=== PATIENT | male | born 2000 | race Caucasian/White ===

== ENCOUNTER 2020-08-02 10:44 | Emergency (ER) | payer OTHER, SELFPAY ==
[2020-08-02 11:01] VITALS: BP 145/92; PULSE 102; RESP 20; TEMP 37.6; O2SAT 97
--- NOTE | 2020-08-02 11:10 | ED.URI ---
HPI - URI/Sore Throat General Chief Complaint: Upper Respiratory Infection Stated Complaint: sore throat Source: patient Mode of arrival: ambulatory Limitations: no limitations History of Present Illness HPI Narrative: 20 year old male presents to [facility] with complaints of sore throat, scratchy throat, fever, body aches and chills since yesterday. Patient not tried taking any [id number] medications for her symptoms. Patient denies sick contacts. Patient denies recent travel. Patient denies productive cough, shortness of breath, wheezing, nausea, vomiting or diarrhea. MD elicited complaint: fever, cough and sore throat Onset (ago): day(s) (1) Consistency: constant Severity: mild Able to tolerate fluids by mouth: Yes Exacerbating factors: nothing Relieving factors: nothing Treatments prior to arrival: none Related Data Home Medications Medication Instructions Recorded Confirmed lurasidone [Latuda] 60 mg DAILY 11/11/19 08/02/20 sertraline 50 mg DAILY 11/11/19 08/02/20 sertraline 100 mg DAILY 11/11/19 08/02/20 Allergies Allergy/AdvReac Type Severity Reaction Status Date / Time cat dander Allergy Unknown Sneezing Verified 08/02/20 11:04 Review of Systems Review of Systems: All systems reviewed & are unremarkable except as noted in HPI and below Constitutional: Constitutional: Reports chills, Denies fatigue, Reports fever(s) and Denies weakness ENT: Denies dysphagia, Denies vertigo, Denies dizziness, Denies epistaxis, Denies nasal congestion and Reports sore throat Cardiovascular: Cardiovascular: Denies chest pain, Denies rapid heart rate, Denies radiating jaw, neck or arm pain and Denies slow heart rate Respiratory: Respiratory: Denies chest congestion, Reports cough (mild dry cough), Denies dyspnea and Denies wheezing Gastrointestinal: Gastrointestinal: Denies abdominal pain, Denies diarrhea, Denies nausea and Denies vomiting Integumentary/Breasts: Skin/Breast: Denies rash Neurologic: Denies vertigo, Denies headache(s), Denies focal weakness and Denies numbness PMF Past Medical History Medical History (Updated 08/02/20 @ 11:27 by Mercedez James APRN) Depression Family History Family History Father Family history of bipolar disorder Social History Social History Smoking status: Never smoker Alcohol intake: never Substance use type: marijuana Gender identity (if verbalized by the patient): Male Exam Const: General: healthy appearing, no acute distress and alert Orientation/consciousness: patient oriented x3 HENMT: Ears: TM's normal bilaterally General nose exam: Normal external nose present and Normal nares present Mouth: Yes Normal oral and palatal mucosa present, Yes lip normal and Yes moist mucous membranes Teeth and gingiva: dentition normal Throat: uvula midline Other: 2+ swelling, erythema and exudate noted to bilateral tonsils. Uvula midline, no shift noted. there is no peritonsillar abscess noted. Neck: Neck: normal visual inspection and no lymphadenopathy Resp: Effort & Inspection: normal respiratory effort Auscultation: clear to auscultation bilaterally Cardio: Rate: regular rate, not bradycardic and not tachycardic Rhythm: regular rhythm Skin: General skin exam: normal color, no jaundice and no pallor Rashes: no rashes Wounds: no wounds Neuro: General: patient oriented x3, moves all extremities and no meningeal signs Psych: Appearance: grossly normal Mental Status: mental status grossly normal Affect: normal affect Attitude: cooperative Thought content: Yes Normal thought content present Course Vital Signs Vital signs: Vital Signs Temperature 37.6 C H 08/02/20 11:01 Pulse Rate 102 H 08/02/20 11:01 Respiratory Rate 20 08/02/20 11:01 Blood Pressure 145/92 H 08/02/20 11:01 Pulse Oximetry 97 08/02/20 11:01 Temperature 37.6
[2020-08-02] MEDS: IBUPROFEN 600 MG TABLET PO (11:24)
== END 2020-08-02 11:53 | disposition home or self-care (01) ==
PROVIDERS: Emergency Provider Nurse Practitioner Family; PCP Family Medicine
DX: J03.90 Acute tonsillitis, unspecified (principal); F32.9 Major depressive disorder, single episode, unspecified
CPT/HCPCS: 87081; 87880; 99213; A9270; G0463

== ENCOUNTER 2021-06-05 18:02 | Emergency (ER) | payer OTHER, SELFPAY ==
[2021-06-05 18:16] VITALS: BP 126/81; PULSE 85; RESP 18; TEMP 36.8; O2SAT 97
--- NOTE | 2021-06-05 18:38 | ED.GENADULT ---
HPI - General Adult General Chief complaint: Recheck/Abnormal Lab/Rx Stated complaint: Medication Refill Time Seen by Provider: 06/05/21 18:30 Source: patient, family and RN notes reviewed Mode of arrival: ambulatory Limitations: no limitations History of Present Illness HPI narrative: Patient presents today requesting a refill of his carbamazepine. Patient takes 200 mg twice daily per the pharmacy database. His last refill was at the beginning of April and he has been out for about a week. He has an appointment with a new psychiatrist on June 11 and needs a short-term refill until that time. He denies HI, SI, hallucinations. History of borderline personality disorder, bipolar disorder. Denies any additional concerns or needs. MD complaint: Medication refill Related Data Home Medications Medication Instructions Recorded Confirmed carbamazepine 100 mg 100 mg PO Q12H 03/08/21 05/22/21 tablet,extended release,12 hr naltrexone mg 06/05/21 Allergies Allergy/AdvReac Type Severity Reaction Status Date / Time cat dander Allergy Unknown Sneezing Verified 05/22/21 13:20 Review of Systems Review of Systems: CONSTITUTIONAL: Denies body aches, fever, chills, or sweats. EYES: Denies visual changes, redness, or discharge. ENT: Denies rhinorrhea, congestion, sore throat, or otalgia. CARDIOVASCULAR: Denies chest pain, palpitations, or edema. RESPIRATORY: Denies cough or dyspnea. GASTROINTESTINAL: Denies abdominal pain, nausea, vomiting, or diarrhea. GENITOURINARY: Denies dysuria or hematuria. SKIN: Denies rash, itching, or wounds. MUSCULOSKELETAL: Denies back pain, joint pain, or myalgia. NEUROLOGIC: Denies headache, numbness, tingling, or weakness. PSYCH: Denies depression or anxiety. [facility] Past Medical History Medical History Depression Family History Family History Father Family history of bipolar disorder Social History Social History Smoking status: Never smoker Tobacco type: e-cigarettes/vaping Second hand tobacco smoke exposure: No Alcohol intake: never Substance use: current Substance use type: marijuana Gender identity (if verbalized by the patient): Male Exam Narrative: GENERAL: Well-appearing, well-nourished, and in no acute distress. HEAD: Normocephalic, atraumatic. EYES: EOMI. No redness or drainage. Conjunctivae normal. ENT: Mucous membranes pink and moist. NECK: Normal AROM.. CHEST: No respiratory distress. EXTREMITIES: Normal range of motion. No edema. SKIN: Warm, dry, no rash. Capillary refill normal. Normal skin turgor. NEURO: No focal deficits. Alert and oriented x3. Gait steady. PSYCH: Normal affect. Course Vital Signs Vital signs: Vital Signs Temperature 98.2 F 06/05/21 18:16 Pulse Rate 85 06/05/21 18:16 Respiratory Rate 18 06/05/21 18:16 Blood Pressure 126/81 06/05/21 18:16 Pulse Oximetry 97 06/05/21 18:16 Temperature 98.2 F 06/05/21 18:16 Pulse Rate 85 06/05/21 18:16 Respiratory Rate 18 06/05/21 18:16 Blood Pressure 126/81 06/05/21 18:16 Pulse Oximetry 97 06/05/21 18:16 Reviewed. Pt has been instructed to follow up with his PCP regarding his elevated blood pressure today. Medical Decision Making Differential Diagnosis Differential Diagnosis: Medication refill Vital Signs Vital Signs: Vital Signs Temperature 98.2 F 06/05/21 18:16 Pulse Rate 85 06/05/21 18:16 Respiratory Rate 18 06/05/21 18:16 Blood Pressure 126/81 06/05/21 18:16 Pulse Oximetry 97 06/05/21 18:16 Temperature 98.2 F 06/05/21 18:16 Pulse Rate 85 06/05/21 18:16 Respiratory Rate 18 06/05/21 18:16 Blood Pressure 126/81 06/05/21 18:16 Pulse Oximetry 97 06/05/21 18:16 Critical Care Time Critical Care Time Critical Care Time: No Di
== END 2021-06-05 18:52 | disposition home or self-care (01) ==
PROVIDERS: Emergency Provider Nurse Practitioner; PCP Physician Assistant
DX: Z76.0 Encounter for issue of repeat prescription (principal); F17.200 Nicotine dependence, unspecified, uncomplicated; F31.9 Bipolar disorder, unspecified
CPT/HCPCS: 99211; G0463

== ENCOUNTER 2021-06-08 15:05 | Emergency (ER) | payer OTHER, SELFPAY ==
[2021-06-08 15:12] VITALS: BP 127/73; PULSE 86; RESP 20; TEMP 36.3; O2SAT 97
--- NOTE | 2021-06-08 15:27 | ED.GENADULT ---
HPI - General Adult General Chief complaint: Upper Respiratory Infection Stated complaint: Chest pain,shortness of breathe Source: patient Mode of arrival: ambulatory Limitations: no limitations History of Present Illness HPI narrative: 20 y/o male. PMHx: Asthma, Bipolar I. Presents to [facility] today with acute complaints of cough, chest congestion, and chest pain when he talks a lot or coughs . He reports a loud dry cough , non-productive. Pt is a daily Vape smoker. No fever, chills. No dizziness, palpitations, dyspnea, edema. No wheezing. He has been taking home Pro-Air HFA with some relief. He tells me that he is worried he may need something else for his cough because the last time this happened he got really sick with a lung infection . He is without additional acute complaints of illness upon exam. Related Data Home Medications Medication Instructions Recorded Confirmed fluticasone furoate-vilanterol 1 inh INHALATION DAILY 06/08/21 06/08/21 [Breo Ellipta] naltrexone 50 mg PO DAILY 06/08/21 06/08/21 Allergies Allergy/AdvReac Type Severity Reaction Status Date / Time cat dander Allergy Unknown Sneezing Verified 06/08/21 15:32 Review of Systems Review of Systems: CONSTITUTIONAL: Denies fever, chills, sweats. EYES: Denies visual changes, redness, discharge. ENT: Positive congestion. No sore throat, otalgia. CARDIOVASCULAR: Chest wall pain. Denies palpitations, edema. RESPIRATORY: Cough. No dyspnea, wheezing. GASTROINTESTINAL: Denies abdominal pain, nausea, vomiting, diarrhea. GENITOURINARY: Denies dysuria, hematuria, abnormal discharge SKIN: Denies rash or itching. MUSCULOSKELETAL: Denies acute back pain, joint pain, or myalgia. NEUROLOGIC: Denies numbness, or focal weakness. PSYCHIATRIC: Denies anxiety or depression. All systems reviewed & are unremarkable except as noted in HPI and below PMFSH Past Medical History Medical History Depression Family History Family History Father Family history of bipolar disorder Social History Social History Smoking status: Never smoker Tobacco type: e-cigarettes/vaping Second hand tobacco smoke exposure: No Alcohol intake: never Substance use: current Substance use type: marijuana Gender identity (if verbalized by the patient): Male Exam Narrative: GENERAL: This is a well-nourished, well-developed patient, in no apparent distress. HEAD: normocephalic, atraumatic. EYES: PERRL. Sclera clear/white. Vision is grossly intact. EARS: External ears normal, auditory canals clear and without drainage. NOSE: External nose normal. THROAT: Mucous membranes moist, posterior pharynx erythematous, w/o exudate. NECK: Neck supple, non-tender without lymphadenopathy, masses or thyromegaly. CARDIOVASCULAR: Regular rate and rhythm without murmurs, gallops, or rubs. There is reproducible chest wall pain with direct manipulation over mid-sternum. No crepitus. Chest wall rises symetrically. RESPIRATORY: Clear to auscultation. Breath sounds equal bilaterally. No wheezes or rales. Upper airway Rhonchi, cleared with cough. GASTROINTESTINAL: Abdomen soft, non-tender, nondistended. Bowel sounds are active. No hepato-splenomegaly, or palpable masses. No guarding. SKIN: warm, intact, good texture and turgor. NEURO: No focal neurological deficits. Course Vital Signs Vital signs: Vital Signs Temperature 36.3 C L 06/08/21 15:12 Pulse Rate 86 06/08/21 15:12 Respiratory Rate 20 06/08/21 15:12 Blood Pressure 127/73 06/08/21 15:12 Pulse Oximetry 97 06/08/21 15:12 Temperature 36.3 C L 06/08/21 15:12 Pulse Rate 86 06/08/21 15:12 Respiratory Rate 20 06/08/21 15:12 Blood Pressure 127/73 06/08/21 15:12 Pulse Oximetry 97 06/08/21 15:12 Medical Decision Aliya
== END 2021-06-08 15:37 | disposition home or self-care (01) ==
PROVIDERS: Emergency Provider Nurse Practitioner Adult Health; PCP Physician Assistant
DX: J06.9 Acute upper respiratory infection, unspecified (principal); J45.909 Unspecified asthma, uncomplicated
CPT/HCPCS: 99213; G0463

== ENCOUNTER → 2021-06-15 00:46 | Outpatient (CLI) | payer OTHER, SELFPAY ==
[2021-06-15 21:49] LABS: SARS-CoV-2 RNA PCR Negative
== END ==
PROVIDERS: PCP Family Medicine; Visit Provider Nurse Practitioner Family
DX: R68.89 Other general symptoms and signs (principal); Z20.822 Contact with and (suspected) exposure to COVID-19
CPT/HCPCS: C9803; U0003; U0005

== ENCOUNTER 2022-02-17 16:20 | Outpatient (CLI) | payer OTHER, SELFPAY ==
--- NOTE | ~2022-02-17 | XR_ITS ---
EXAMINATION: XR chest 2V DATE: 02/17/2022 16:53 INDICATION: Unspecified asthma, uncomplicated. TECHNIQUE: Frontal and lateral views of the chest were obtained. COMPARISON: Chest 2 views 08/01/2017 FINDINGS: The chest demonstrates clear lungs without pneumonia, pleural effusion, or pneumothorax. Th e heart size is normal. IMPRESSION: 1. No acute cardiopulmonary disease. Reviewed, dictated and finalized at location A.
== END 2022-02-17 16:21 ==
PROVIDERS: PCP Family Medicine; Visit Provider Physician Assistant
DX: J45.909 Unspecified asthma, uncomplicated (principal)
CPT/HCPCS: 71046

== ENCOUNTER 2022-09-13 14:56 | Emergency (ER) | payer OTHER, SELFPAY ==
--- NOTE | ~2022-09-13 | US_ITS ---
EXAMINATION: US scrotum doppler DATE: 09/13/2022 16:34 INDICATION: GENITAL SWELLING, left scrotal pain. TECHNIQUE: Grayscale and Doppler ultrasound images of the testes were obtained. COMPARISON: None. FINDINGS: The right testis measures 3.5 x 2.6 x 1.8 cm. The left testis measures 3.2 x 2.9 x 1.6 cm. No testicular mass. There is normal vascular flow to both testes. The right epididymis is normal with normal vascular flow. The left epididymis is normal with normal vascular flow. Moderate volume left debris-containing hydrocele. Small right hydrocele. No varicocele. IMPRESSION: Moderate volume debris-containing left hydrocele. Reviewed, dictated and finalized at location K.
--- NOTE | ~2022-09-13 | CT_ITS ---
EXAMINATION: CT abdomen pelvis wo con DATE: 09/13/2022 18:29 INDICATION: L lower abd pain and testicular pain TECHNIQUE: Computed tomography (CT) of the abdomen and pelvis was performed without intravenous contr ast. Automated exposure control and iterative reconstruction technique were employed. The dose-length product was 929.05 mGy-cm. COMPARISON: None. FINDINGS: Lower thorax: Minimal bilateral gynecomastia. Liver: Normal. Biliary/Gallbladder: Gallbladder is normal. No bile duct dilation. Pancreas: No mass or duct dilation. Spleen: Normal. Adrenals:No mass. Kidneys: No mass, stone, or hydronephrosis. GI tract: No small or large bowel dilation. Normal appendix. Mesentery/Peritoneum: No ascites, mass, or free air. Retroperitoneum: No mass. Pelvis: Pelvic organs are within normal limits. Soft Tissues: Soft tissues and body wall unremarkable. Bones: No acute osseous finding. IMPRESSION: No acute abdominopelvic process detected. Reviewed, dictated and finalized at location K.
[2022-09-13 14:59] VITALS: BP 136/89; PULSE 79; RESP 16; TEMP 36.9; O2SAT 97
[2022-09-13 15:19] LABS: Appearance Urine Clear (Clear); Bilirubin Urine Negative (Negative); Blood Urine Negative (Negative); Color Urine Yellow (Yellow); Glucose Urine UA Negative (Negative); Ketones Urine Negative (Negative); Leukocyte Esterase Ur Negative LEU/UL (Negative); Nitrate Urine Negative (Negative); Protein Urine Negative (Negative); Urobilinogen Urine 0.2 mg/dL (<2.0); pH Urine 5.5 (5.0-9.0)
[2022-09-13 15:27] LABS: Mucus Urine Rare /lpf; RBC Urine 0-2 /hpf (0-2); Squamous Epithelial Cell Urine Rare /hpf (Few); WBC Urine 0-3 /hpf
[2022-09-13 15:29] LABS: Add Urine Microscopic? NO
[2022-09-13] MEDS: IBUPROFEN 600 MG TABLET PO (16:51)
--- NOTE | 2022-09-13 18:37 | ED.GENADULT ---
HPI - General Adult General Chief complaint: Urogenital-Male Stated complaint: swelling in private areas Time Seen by Provider: 09/13/22 15:36 Source: RN notes reviewed History of Present Illness HPI narrative: Patient presents emergency department from home for left testicular pain. Patient states that testicular pain began approximately 2 days ago. States that he has had intermittent pain in his left testicle that radiates up into his abdomen states the pain is described as cramping in nature and almost feels like he has gas in his abdomen. He states that he has noted some swelling in his left testicle that will come and go states he was recently diagnosed with COVID on 10 September he denies any trauma or injury to the testicle he denies any fevers or chills nausea vomiting diarrhea or any other symptoms. States he has been taking pain medicine today Related Data Home Medications Medication Instructions Recorded Confirmed naltrexone 50 mg tablet 50 mg PO DAILY 06/08/21 04/18/22 Allergies Allergy/AdvReac Type Severity Reaction Status Date / Time cat dander Allergy Unknown Sneezing Verified 07/30/22 15:42 Review of Systems Review of Systems: Gen.: Denies fevers or chills, reports COVID-19 ENT: Denies congestion Respiratory: Denies shortness of breath or cough CV: Denies chest pain or palpitations GI: Reports intermittent left lower abdominal pain, denies any nausea vomiting or diarrhea denies burning, urgency, frequency or hematuria reports left testicular pain Musculoskeletal: Denies back pain or muscle pain Neuro: Denies numbness, tingling, weakness or focal weakness Skin: Denies rash Except as documented, all other systems reviewed and negative [facility] Past Medical History Medical History (Updated 09/13/22 @ 19:02 by Darrius Figueredo DO) COVID-19 Depression Family History Family History Father Family history of bipolar disorder Social History Social History Social History: Single Smoking status: Never smoker Tobacco type: e-cigarettes/vaping Second hand tobacco smoke exposure: No Alcohol intake: never Substance use: current Substance use type: marijuana Gender identity (if verbalized by the patient): Male Sexual Orientation (if Verbalized by the Patient): Straight or Heterosexual Exam Narrative: APPEARANCE: No acute distress, nontoxic, resting in bed EYES: EOMI HEENT: Normocephalic, atraumatic, OMM RESPIRATORY: No respiratory distress Clear to auscultation bilaterally with no rhonchi wheezing or rales. CARDIOVASCULAR: Regular rate and rhythm without murmurs rubs or gallops. ABDOMINAL: Soft, nontender, nondistended, no rebound or guarding : No skin lesions seen no phimosis or paraphimosis, no scrotal swelling or erythema mild tenderness of the left posterior superior testicle no testicular swelling noted MUSCULOSKELETAl: Moves all extremities. No clubbing, cyanosis or edema. NEURO: Awake and alert. Following commands, speech normal, no focal deficits SKIN:: Warm, dry. No rashes lesions or abrasions PSYCHIATRIC: Normal affect/mood, Course Course Emergency Course: Discussed with patient results of workup and diagnosis. Discussed need for follow-up with primary care, proper use of medication, and reasons to return to the emergency department. Patient understands and agrees to current treatment plan Vital Signs Vital signs: Vital Signs Temperature 98.4 F 09/13/22 14:59 Pulse Rate 79 09/13/22 14:59 Respiratory Rate 16 09/13/22 14:59 Blood Pressure 136/89 09/13/22 14:59 Pulse Oximetry 97 09/13/22 14:59 Oxygen Delivery Room Air 09/13/22 14:59 Temperature 98.4 F 09/13/22 14:59 Pulse Rate 79 09/13/22 14:59 Respiratory Rate 16 09/13/22 14:59 Blood Pressure 136/89 09/13/22 14:59 Pulse Oximetry 97 09/13/22 14:59 Oxygen Delivery Faby
== END 2022-09-13 19:20 | disposition home or self-care (01) ==
PROVIDERS: Emergency Provider Emergency Medicine; PCP Family Medicine
DX: N43.3 Hydrocele, unspecified (principal); U07.1 COVID-19
CPT/HCPCS: 74176; 76870; 81003; 93976; 99284; A9270

== ENCOUNTER 2022-12-11 08:15 | Emergency (ER) | payer OTHER, SELFPAY ==
--- NOTE | ~2022-12-11 | XR_ITS ---
EXAMINATION: XR chest 2V DATE: 12/11/2022 08:58 INDICATION: Shortness of breath TECHNIQUE: PA and lateral views of the chest are obtained. COMPARISON: 02/17/2022 FINDINGS: The lungs are free of acute opacities. No pleural effusion or pneumothorax. The cardiomedia stinal silhouette is normal. The visualized bones and soft tissues are unremarkable. IMPRESSION: 1. No acute cardiopulmonary abnormality. Reviewed, dictated and finalized at location L. DESIGNER
[2022-12-11 08:25] VITALS: BP 135/64; PULSE 94; RESP 20; O2SAT 93
[2022-12-11 08:30] VITALS: PULSE 85; RESP 24
[2022-12-11] MEDS: IPRATROPIUM BR 0.02% INH SOLN 0.5 MG/2.5 ML VIAL INHALATION (08:33)
[2022-12-11] MEDS: ALBUTEROL SULFATE NEB 2.5 MG/3 ML INH 5 MG INHALATION (08:34)
[2022-12-11 08:50] VITALS: PULSE 90; RESP 20
[2022-12-11 09:22] LABS: Influenza A QL RT-PCR Negative (Negative); Influenza B QL RT-PCR Negative (Negative); SARS-CoV-2 RNA PCR Negative
--- NOTE | 2022-12-11 10:46 | ED.GENADULT ---
HPI - General Adult General Chief complaint: Upper Respiratory Infection Stated complaint: Asthma, URI, Time Seen by Provider: 12/11/22 08:21 History of Present Illness HPI narrative: Patient is a 22-year-old male who presents ER with shortness of breath and cough. Ongoing for a week. No improvement with his albuterol. Denies fevers or chills or sweats but has some sinus congestion and sore throat. No known sick contacts. Shortness of breath worse today so he came in for evaluation. Related Data Home Medications Medication Instructions Recorded Confirmed naltrexone 50 mg tablet 50 mg PO DAILY 06/08/21 11/26/22 Allergies Allergy/AdvReac Type Severity Reaction Status Date / Time cat dander Allergy Unknown Sneezing Verified 11/26/22 15:40 Review of Systems Review of Systems: All systems reviewed & are unremarkable except as noted in HPI and below Constitutional: Constitutional: Denies chills, Denies fatigue and Denies fever(s) ENT: Reports nasal congestion and Reports sore throat Cardiovascular: Cardiovascular: Denies chest pain, Denies rapid heart rate and Denies radiating jaw, neck or arm pain Respiratory: Respiratory: Reports cough, Reports dyspnea and Reports wheezing PMFSH Past Medical History Medical History (Updated 12/11/22 @ 19:13 by Mickey Harkins MD) ADHD Asthma Bipolar 1 disorder Borderline personality disorder COVID-19 Depression Surgical History Surgical History (Updated 12/11/22 @ 19:13 by Mickey Harkins MD) No pertinent past surgical history Family History Family History Father Family history of bipolar disorder Social History Social History Social History: Single Smoking status: Never smoker Tobacco type: e-cigarettes/vaping Second hand tobacco smoke exposure: No Alcohol intake: never Substance use: current Substance use type: marijuana Living arrangements: with friend(s) Occupation/Education: occupation Gender identity (if verbalized by the patient): Male Sexual Orientation (if Verbalized by the Patient): Straight or Heterosexual Exam Narrative: GENERAL: Well-appearing, well-nourished, and in no acute distress. HEAD: Normocephalic, atraumatic. ENT: Mucous membranes moist. CHEST: Faint diffuse expiratory wheezing. No respiratory distress. HEART: Regular rate and rhythm. Normal peripheral pulses. EXTREMITIES: Normal range of motion. No edema. SKIN: Warm, dry, no rash. NEURO: Alert and oriented x3. PSYCH: Normal mood and affect. Course Course Emergency Course: Lung sounds normal after neb treatment. Informed of COVID/flu/chest x-ray results. Discharge home with steroids. Vital Signs Vital signs: Vital Signs Pulse Rate 94 12/11/22 08:25 Respiratory Rate 20 12/11/22 08:25 Blood Pressure 135/64 12/11/22 08:25 Pulse Oximetry 93 12/11/22 08:25 Oxygen Delivery Room Air 12/11/22 08:25 Pulse Rate 86 12/11/22 11:25 Respiratory Rate 16 12/11/22 11:25 Blood Pressure 119/59 L 12/11/22 11:25 Pulse Oximetry 96 12/11/22 11:25 Oxygen Delivery Room Air 12/11/22 08:25 Medical Decision Making Vital Signs Vital Signs: Vital Signs Pulse Rate 94 12/11/22 08:25 Respiratory Rate 20 12/11/22 08:25 Blood Pressure 135/64 12/11/22 08:25 Pulse Oximetry 93 12/11/22 08:25 Oxygen Delivery Room Air 12/11/22 08:25 Pulse Rate 86 12/11/22 11:25 Respiratory Rate 16 12/11/22 11:25 Blood Pressure 119/59 L 12/11/22 11:25 Pulse Oximetry 96 12/11/22 11:25 Oxygen Delivery Room Air 12/11/22 08:25 Lab Data Labs: Lab Results 12/11/22 Range/Units 08:42 Influenza A (RT-PCR) Negative (Negative) Influenza B (RT-PCR) Negative (Negative) SARS-CoV-2 RNA (RT-PCR) Negative Imaging Data Radiologist's impression: ITS Impressions Chest X-Ray
[2022-12-11 11:25] VITALS: BP 119/59; PULSE 86; RESP 16; O2SAT 96
== END 2022-12-11 11:25 | disposition home or self-care (01) ==
PROVIDERS: Emergency Provider Emergency Medicine; PCP Family Medicine
DX: B34.9 Viral infection, unspecified (principal); J45.901 Unspecified asthma with (acute) exacerbation; Z20.822 Contact with and (suspected) exposure to COVID-19; F90.9 Attention-deficit hyperactivity disorder, unspecified type; F31.9 Bipolar disorder, unspecified; F60.3 Borderline personality disorder; Z86.16 Personal history of COVID-19
CPT/HCPCS: 71046; 87636; 94640; 99283

== ENCOUNTER 2023-02-06 13:56 | Outpatient (CLI) | payer OTHER, SELFPAY ==
--- NOTE | ~2023-02-06 | CT_ITS ---
EXAMINATION: CT diagnostic chest wo con DATE: 02/06/2023 14:27 INDICATION: Asthma and shortness of breath TECHNIQUE: Computed tomography (CT) of the chest was performed without intravenous contrast. The dose -length product (DLP) was 386.53 mGy-cm. Automated exposure control and iterative reconstruction tech nique were employed. COMPARISON: None FINDINGS: There is mild dependent atelectasis. The lungs are free of focal airspace opacities. Scatte red 1 to 2 mm nodule of the lungs likely reflect old granulomatous disease. No pleural effusion or pn eumothorax. There is mild bilateral gynecomastia. No pathologically enlarged thoracic lymph nodes are identified. The heart size is normal. IMPRESSION: 1. No CT correlate for the patient's symptoms. Reviewed, dictated and finalized at location F.
== END 2023-02-06 13:57 | disposition home or self-care (01) ==
PROVIDERS: PCP Family Medicine; Visit Provider Physician Assistant
DX: J45.909 Unspecified asthma, uncomplicated (principal)
CPT/HCPCS: 71250

== ENCOUNTER 2023-02-27 14:48 | Outpatient (CLI) | payer OTHER, SELFPAY ==
--- NOTE | 2023-03-02 12:54 | WPDPFTINT ---
PFT Procedure Performed PFT Procedure Performed Spirometry with Pre/Post Bronchodilator Plethysmography (Lung Vol) Diffusing Cap (DLCO) Flow Vol Loop PFT Interpretation This is a pulmonary function test with pre and post-bronchodilator spirometry, plethysmography and diffusing capacity. The test was performed and results interpreted in accordance with the 2019 and 2005 ATS/ERS Task Force guidelines respectively using the Global Lung Function Initiative-2012 reference equations. Patient demonstrated good effort and cooperation. Reproducibility criteria were met. The quality of the pre bronchodilator spirometry maneuver was Grade A and post bronchodilator spirometry maneuver was Grade B. Findings: Spirometry: The contour the inspiratory and expiratory flow tracing are normal. The pre bronchodilator FVC is 5.76 L, 104% predicted. The pre bronchodilator FEV1 is 4.28 L, 92% predicted. The pre bronchodilator FEV1: FVC ratio 74%. The post bronchodilator FVC is 5.52 L, representing a 4% decrease. The post bronchodilator FEV1 is 4.23 L, representing 1% decrease. The post bronchodilator FEV1: FVC ratio 77%. Plethysmography: The total lung capacity is 7.39 L, 107% predicted. The functional residual capacity is 3.42 L, 103% predicted. The residual volume is 1.63 L, 108% predicted. Diffusing capacity: The diffusing capacity unadjusted for hemoglobin and carboxyhemoglobin is 33.8, 92% predicted. The diffusing capacity adjusted for alveolar volume is 5.12, 96% predicted. Impression: The spirometry is normal without evidence of an obstructive abnormality. There is no significant improvement after inhaling a single dose of albuterol. The lung volumes are normal. The diffusing capacity is normal. There are no prior studies for comparison
== END 2023-02-27 14:49 | disposition home or self-care (01) ==
LOC: ANHPFT 14:49
PROVIDERS: PCP Family Medicine; Visit Provider Physician Assistant
DX: J45.909 Unspecified asthma, uncomplicated (principal)
CPT/HCPCS: 94060; 94726; 94729

== ENCOUNTER 2025-01-20 13:56 | Outpatient (CLI) | payer BC, SELFPAY ==
--- OUTSIDE RECORDS SUMMARY | 2025-01-20 14:00 | XMS_ITS | Referral Summary ---
Author Organization [facility] Address [address] [place] [id number] Care Team Providers Care Scrap Baller Name Role Phone Rudy Brown Primary Care Provider [phone] [phone] Allergies No known active allergies Medications benzonatate (TESSALON) 100 mg capsuleIndicati ons:Cough Take 1 capsule (100 mg total) by mouth every 8 (eight) hours 21 capsule 06/23/2023 Active Social History Tobacco Use Types Packs/Day Years Used Date Smoking Tobacco: Never Assessed Personal Safety Answer Date Recorded Getting School Help Needed Not on file 07/30 Sex and Gender Information Value Date Recorded Sex Assigned at Not on file 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 Gender Identity Not on file Sexual Orientation Not on file Last Filed Vital Signs Vital Sign Reading Time Taken Comments Blood Pressure 139/101 06/23/2023 4:55 AM CDT Pulse 96 06/23/2023 4:55 AM CDT Temperature 36.7 C (98 F) 06/23/2023 4:55 AM CDT Respiratory Rate 18 06/23/2023 4:55 AM CDT Oxygen Saturation 95% 06/23/2023 6:03 AM CDT Inhaled Oxygen Concentration - - Weight 95.3 kg (210 lb) 06/23/2023 4:55 AM CDT Height 172.7 cm (5' 8 ) 06/23/2023 4:55 AM CDT Body Mass Index 31.93 06/23/2023 4:55 AM CDT Plan of Treatment Not on file Insurance [employer] Care Teams Scrap Baller Relationship Specialty Start Date End Date Rudy Brown PA [address] [facility] [address] [place] [address] PCP - General Physician Cafeteria Or Lunchroom Checker 05/05/22
--- OUTSIDE RECORDS SUMMARY | 2025-01-20 14:00 | XMS_ITS | Referral Summary ---
Author Organization [facility] [employer] Address [address] [place] [address] Care Team Providers Care Alberene Stone Setter Name Role Phone Joaquin Cabrera MD Primary Care Provider [phone]- [phone] Source Comments [facility] [employer],non-owned Affiliates and Associated Physician Practices is amultiple site organization consisting of ambulatory clinics and hospital sitesin [place], [place] and [place]. This disclosure is being madepursuant to the Care Everywhere program and may not contain all information available regarding this patient. Last updated 18.[facility] [employer] Encounters Date Type Department Care Team Description 01/18/2025 Travel 10/26/2024 Travel from Last 3 Months Allergies No known active allergies Medications * Be aware that medications may not be up to date on this document. Alwaysverify current medications with the patient. Medication Sig Dispensed Refills Start Date End Date Status albuterol HFA (Proventil; Ventolin; Proair) 108 (90 Base) MCG/ACT inhaler Inhale 2 (two) puffs by mouth every 4 hours 09/15/2024 Active Trelegy Ellipta 200-62.5-25 MCG/ACT inhaler Inhale 1 (one) puff by mouth once daily 05/16/2024 Active FLUoxetine (PROzac) 20 MG capsule Take 1 (one) capsule by mouth once daily 30 capsule 01/18/2025 Active hydrOXYzine HCl (Atarax) 25 MG tabletIndications :Anxiety Take 1 (one) tablet by mouth 4 times daily as needed (Anxiety) Reasons: Feeling Anxious 30 tablet 01/18/2025 Active ARIPiprazole (Abilify) 5 MG tabletIndications :Anxiety,Atypical Depression,Border line Personality Disorder Take 1 (one) tablet by mouth once daily for 30 days Reasons: Atypical Depression, Borderline Personality Disorder, Feeling Anxious 30 tablet 10/26/2024 5 Discontinue d(Clinical Decision) clonazePAM (KlonoPIN) 0.5 MG tablet Take 1 (one) tablet by mouth every morning 30 tablet 11/15/2024 5 Discontinue d(Clinical Decision) Active Problems Problem Noted Date Diagnosed Date Unspecified mood (affective) disorder 10/10/2024 Social History Tobacco Use Types Packs/Day Years Used Date Smoking Tobacco: Every Day Cigarettes Tobacco Cessation:Ready to Q uit: Not Asked; Counseling Given: Not Answered AUDIT-C Answer Date Recorded Q1: How often do you have a drink containing alc ohol? Monthly or less 10/10/2024 Q2: How many drinks containi ng alcohol do you have on a typical day when you are drinking? 1 or 2 10/10/2024 Q3: How often do you have si x or more drinks on one occasion? Never 10/10/2024 Overall Financial Resource Strain (CARDIA) Answe r Date Recorded How hard is it for you to pa y for the very basics like food, housing, medical care, and heating? Not very hard 10/10/2024 PHQ-2 Answer Date Recorded Patient Health Questionnaire-2 Score 2 01/18/2025 [facility] - Occupational Stress Questionnaire Answer Date Recorded Do you feel stress - tense, restless, nervous, or anxious, or unable to sleep at night because your mind is troubled all the time - these days? To some extent 10/10/2024 Hunger Vital Sign Answer Date Recorded Within the past 12 months, y ou worried that your food would run out before you got the money to buy more. Never true 10/10/20 24 Within the past 12 months, t he food you bought just didn't last and you didn't have money to get more. Never true 10/10/2024 PRAPARE - Transportation Answer Date Re corded In the past 12 months, has l ack of transportation kept you from medical appointments or from getting medications? No 12/2023 In the past 12 months, has l ack of transportation kept you from meetings, work, or from getting things needed for daily living? No 10/10/2024 Housing Stability Vital Sign Answer Rodrigue e Recorded In the last 12 months, was t here a time when you were not able to pay the mortgage or rent on time? No 10/10/2024 In the past 12 months, how m any times have you moved where you were living? 1 10/10/2024 At any time in the past 12 m [facility], were you homeless or living in a group home (including now)? No 10/10/2024 Sex and Gender Information Value Date Recorded Sex Assigned at Not on file Gender Identity Not on file Sexual Orientation Not on file Last Filed Vital Signs Vital Sign Reading Time Taken Comments Blood Pressure 120/77 01/18/2025 1:12 PM CDT Pulse 98 01/18/2025 1:12 PM CDT Temperature 36.5 C (97.7 F) 10/12/2024 8:16 AM SHOT GRINDER OPERATOR Respiratory Rate 18 10/12/2024 8:16 AM SHOT GRINDER OPERATOR Oxygen Saturation 95% 01/18/2025 1:12 PM CDT Inhaled Oxygen Concentration - - Weight 94.8 kg (209 lb) 01/18/2025 1:12 PM CDT Height 172.7 cm (5' 8 ) 01/18/2025 1:12 PM CDT Body Mass Index 31.78 01/18/2025 1:12 PM CDT Functional Status Functional Status Response Date of Assess ment Is person deaf or have serious hearing difficult y? No 10/10/2024 Is person blind or have serious difficulty seein g? No 10/10/2024 Does person have serious dif ficulty walking/climbing stairs? No 10/10/2024 Does person have difficulty dressing/bathing? No 10/10/2024 Does person have difficulty doing errands alone? No 10/10/2024 Cognitive Status Response Date of Assessm ent Does person have difficulty concentrating/remembering/making decisions? No 10/10/2024 Plan of Treatment Not on file Advance Directives * Full Code (Latest Code Status on File) Date Activated Date Inactivated Comments 10/10/2024 9:15 PM 10/12/2024 3:05 PM Care Teams Alberene Stone Setter Relationship Specialty Start Date End Date Joaquin Cabrera MD [address] [phone] PCP - General 10/26/24
--- OUTSIDE RECORDS SUMMARY | 2025-01-20 14:00 | XMS_ITS | Clinical Summary ---
Author Organization [facility] Address [address] [place] [address] Care Team Providers Care Butt Sawyer Name Role Phone Joaquin Cabrera MD Primary Care Provider [phone]- [phone] Source Comments [facility],non-owned Affiliates and Associated Physician Practices is amultiple site organization consisting of ambulatory clinics and hospital sitesin [place], [place], [place] and [place]. This disclosure is being madepursuant to the Care Everywhere program and may not contain all information available regarding this patient. Last updated 18.[facility] Allergies No known active allergies Medications * [...] Diagnosed Date Unspecified mood (affective) disorder 10/10/2024 Encounters Date Type Department Care Team Description 01/18/2025 Travel 10/26/2024 Travel from Last 3 Months Social History Tobacco Use Types Packs/Day Years [...] Recorded Patient Health Questionnaire-2 Score 2 01/18/2025 [facility] Health - Occupational Stress [...] any time in the past [address] [facility], were you homeless or living in a long-term (including now)? No 10/10/2024 Sex and Gender Information Value Date Recorded Sex Assigned at Not on file Gender Identity Not on file Sexual Orientation Not on file Last Filed Vital Signs Vital Sign Reading Time Taken Comments Blood Pressure 120/77 01/18/2025 1:12 PM CDT Pulse 98 01/18/2025 1:12 PM CDT Temperature 36.5 C (97.7 F) 10/12/2024 8:16 AM SPLITTER HAND Respiratory Rate 18 10/12/2024 8:16 AM SPLITTER HAND Oxygen Saturation 95% 01/18/2025 1:12 PM CDT Inhaled Oxygen Concentration - - Weight 94.8 kg (209 lb) 01/18/2025 1:12 PM CDT Height 172.7 cm (5' 8 ) 01/18/2025 1:12 PM CDT Body Mass Index 31.78 01/18/2025 1:12 PM CDT Plan of Treatment Health Maintenance Due Date Last Done Comments HIV SCREENING 2013 HPV VACCINE (1 - Male 3-dose series) 2013 HEPATITIS C SCREENING 07/05/2016 DTAP/TDAP/TD VACCINES (1 - Tdap) 2017 HEPATITIS B VACCINE (1 of 3 - 19+ 3-dose series) 2017 PNEUMOCOCCAL VACCINE (1 of 2 - PCV) 2017 COVID-19 VACCINE ( - 2023-2 5 season) 2024 INFLUENZA VACCINE (#1) 2024 ZOSTER VACCINE (1 of 2) 2048 DEPRESSION SCREENING Completed 01/18/2025, 10/10/2024 HIB VACCINE Aged Out No longer eligi ble based on patient's age to complete this topic MENINGOCOCCAL (Group B) VACCINE SHARED DECISION-MAKING Aged Out No longer eligible based on patient's age to complete this topic MENINGOCOCCAL GROUPS A/C/Y/W VACCINE Aged Out No longer eligible b ased on patient's age to complete this topic Advance Directives * Full Code (Latest Code Status on File) Date Activated Date Inactivated Comments 10/10/2024 9:15 PM 10/12/2024 3:05 PM Care Teams Butt Sawyer Relationship Specialty Start Date End Date Joaquin Cabrera MD [address] [place] [phone] PCP - General 10/26/24
--- OUTSIDE RECORDS SUMMARY | 2025-01-20 14:00 | XMS_ITS | Clinical Summary ---
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 Gender Identity Not on file Sexual Orientation [...] 06/23/2023 4:55 AM CDT Plan of Treatment Health Maintenance Due Date Last Done Comments Depression Screening 1998 Hepatitis C Screening 1998 Varicella Vaccines (2 of 2 - 2-dose childhood series) 2002 07/18/1999 DTaP/Tdap/Td Vaccine (6 - Tdap) 2009 12/13/2002, 01/08/2000, 01/09/1999, Additional history exists HPV Vaccines (1 - Male 3-dose series) 2013 Regular Well Visit/Exam 18-64 2016 Covid-19 Vaccine (3 - 2023- season) 2024 02/21/2021, 01/27/2021 Influenza Vaccine (#1) 2024 Hepatitis B Screening Completed 01/09/1999 , 1998, 1998 Pneumococcal vaccine <65 Aged Out No longer eligible based on patient's age to complete this topic Insurance [employer] Care Teams Ammunition Assembly I Laborer Relationship Specialty Start Date End Date Rudy Brown PA [address] [address] PCP - General Physician Roll Icer Machine 05/05/22
--- OUTSIDE RECORDS SUMMARY | 2025-01-20 14:00 | XMS_ITS | Patient Health Summary ---
Author Organization [facility] Address [address] [place] [address] Care Team Providers Care Cement Mason Helper Name Role Phone Joaquin Cabrera MD Primary Care Provider [phone]- [phone] Note from [facility] [place],non-owned Affiliates and Associated Physician Practices is amultiple site organization consisting of ambulatory clinics and hospital sitesin [place], [place], [place] and [place]. This disclosure is being madepursuant to the Care Everywhere program and may not contain all information available regarding this patient. Last updated 18.[facility] Allergies No known active allergies Medications * Be aware that medications may not be up to date on this document. Alwaysverify current medications with the patient. * albuterol HFA (Proventil; Ventolin; Proair) 108 (90 Base) MCG/ACT inhaler (Started 09/15/2024) Inhale 2 (two) puffs by mouth every 4 hours * Trelegy Ellipta 200-62.5-25 MCG/ACT inhaler(Started 05/16/2024) Inhale 1 (one) puff by mouth once daily * FLUoxetine (PROzac) 20 MG capsule(Started 01/18/2025) Take 1 (one) capsule by mouth once daily * hydrOXYzine HCl (Atarax) 25 MG tablet(Started 01/18/2025) Take 1 (one) tablet by mouth 4 times daily as needed (Anxiety) Reasons: Feeling Anxious Ended Medications* ARIPiprazole (Abilify) 5 MG tablet(Started 10/26/2024) (Discontinued) Take 1 (one) tablet by mouth once daily for 30 days Reasons: Atypical Depression, Borderline Personality Disorder, Feeling Anxious * clonazePAM (KlonoPIN) 0.5 MG tablet(Started 11/15/2024)(Discontinued) Take 1 (one) tablet by mouth every morning Active Problems Problem Noted Date Diagnosed Date [...] Recorded Patient Health Questionnaire-2 Score 2 01/18/2025 [facility] Occup[facility] ional Health - Occupational [...] any time in the past 12 m [facility], were you homeless or living in a [place] health care facility (including now)? No 10/10/2024 Sex and Gender Information Value Date Recorded Sex Assigned at Not on file Gender Identity Not on file Sexual Orientation Not on file Last Filed Vital Signs Vital Sign Reading Time Taken Comments Blood Pressure 120/77 01/18/2025 1:12 PM CDT Pulse 98 01/18/2025 1:12 PM CDT Temperature 36.5 C (97.7 F) 10/12/2024 8:16 AM BARN HAND Respiratory Rate 18 10/12/2024 8:16 AM BARN HAND Oxygen Saturation 95% 01/18/2025 1:12 PM CDT Inhaled Oxygen Concentration - - Weight 94.8 kg (209 lb) 01/18/2025 1:12 PM CDT Height 172.7 cm (5' 8 ) 01/18/2025 1:12 PM CDT Body Mass Index 31.78 01/18/2025 1:12 PM CDT Procedures * URINE DRUG SCREEN IMMUNOASSAY(Performed 10/10/2024) Performed for Medical clearance for psychiatric admission * CHLAMYDIA + GC AMPLIFIED PROBE(Performed 10/10/2024) Performed for Medical clearance for psychiatric admission * ALCOHOL ETHYL BLOOD(Performed 10/10/2024) Performed for Medical clearance for psychiatric admission * COMPREHENSIVE METABOLIC PANEL(Performed 10/10/2024) Performed for Medical clearance for psychiatric admission * CBC W AUTO DIFFERENTIAL(Performed 10/10/2024) Performed for Medical clearance for psychiatric admission Results * CHLAMYDIA + GC AMPLIFIED PROBE (10/10/2024 7:59 PM BARN HAND) Chlamydia Amplified Probe Negative Negative 10/11/2024 6:22 AM BARN HAND [facility] GC Amplified Probe Negative Negative 10/11/2024 6:22 AM BARN HAND [facility] Microbiology URINE / Unknown Collection / Unknown 10/10/2024 7:59 PM BARN HAND 10/10/2024 8:19 PM BARN HAND Narrative [facility] - 10/11/2024 6:22 AM BARN HAND Results based on detection/no detection of ribosomal RNA by amplified method. Saniya Platt APRN-HAND ETCHER LAB - MICROBIOL OGY ORDERABLES [facility] [address] [place] [address], [facility] [phone] * (ABNORMAL) URINE DRUG SCREEN IMMUNOASSAY (10/10/2024 7:59 PM BARN HAND) Amphetamines Screen Urine Negative Negative : < 1000 ng/mL 10/10/2024 8:42 PM [facility] Barbiturates Screen Urine Negative Negative : < 200 ng/mL 10/10/2024 8:42 PM [facility] Benzodiazepine Screen Urine Negative Negative : < 200 ng/mL 10/10/2024 8:42 PM [facility] Opiates Urine Negative Negative : < 300 ng/mL 10/10/2024 8:42 PM [facility] Cocaine Metabolites Urine Negative Negative : < 300 ng/mL 10/10/2024 8:42 PM [facility] Phencyclidine Screen Urine Negative Negative : < 25 ng/ml 10/10/2024 8:42 PM [facility] Cannabinoids Screen Urine Positive(A) Negative : <50 ng/mL 10/10/2024 8:42 PM [facility] Comment:Positive urine canna binoids (THC) screening results should be confirmed by another generally accepted non-immunological method such as gas chromatography or mass spectrometry. Methadone Screen Urine Negative Negative : < 300 ng/mL 10/10/2024 8:42 PM [facility] Fentanyl Screen Urine Negative Negative : <1.5 ng/mL 10/10/2024 8:42 PM [facility] Urine URINE / Unknown Collection / Unknown 10/10/2024 7:59 PM [facility] 10/10/2024 8:19 PM [facility] - 10/10/2024 8:42 PM BARN HAND The Urine Toxicology Screening Panel does not screen for Propoxyphene, Meprobamate, Carisoprodol, Trazodone, [id number] medications and/or volatiles (Acetone, Isopropanol, Methanol or Ethylene Glycol). Ethanol, Salicylate, Acetaminophen, Tricyclic Antidepressants and several therapeutic drugs may be individually assayed in serum or plasma specimen. Toxicology testing by the [facility] is an aid to medical diagnosis and treatment of patients. No documented chain of custody was maintained. Results are intended to be used for clinical purposes only. Saniya Platt TOW MOTOR OPERATOR-HAND ETCHER LAB - URINE SAMANTHA THEO ORDERABLES [facility] [address] [place] [address], [facility] [phone] * (ABNORMAL) CBC W AUTO DIFFERENTIAL (10/10/2024 6:59 PM BARN [facility]) WBC 11.4(H) 4.0 - 10.7 x10E9/L 10/10/2024 7:23 PM [facility] RBC Count 5.85(H) 4.30 - 5.80 x10E12/L 10/10/2024 7:23 PM [facility] Hemoglobin 17.4 13.3 - 17.5 g/dL 10/10/2024 7:23 PM [facility] Hematocrit 51.2(H) 38.7 - 51.1 % 10/10/2024 7:23 PM [facility] MCV 87.5 80.0 - 98.0 fL 10/10/2024 7:23 PM [facility] MCH 29.7 26.7 - 33.6 pg 10/10/2024 7:23 PM [facility] MCHC 34.0 31.7 - 36.3 g/dL 10/10/2024 7:23 PM [facility] RDW-CV 12.7 11.3 - 14.8 % 10/10/2024 7:23 PM [facility] Platelet Count 279 150 - 420 x10E9/L 10/10/2024 7:23 PM [facility] MPV 9.5 7.8 - 11.4 fL 10/10/2024 7:23 PM [facility] Neutrophil % 80.5(H) 41.0 - 74.0 % 10/10/2024 7:23 PM [facility] Lymphocyte % 12.8(L) 17.0 - 47.0 % 10/10/2024 7:23 PM [facility] Monocyte % 4.6 3.0 - 11.0 % 10/10/2024 7:23 PM [facility] Eosinophil % 1.0 0.0 - 7.0 % 10/10/2024 7:23 PM [facility] Basophil % 0.7 0.0 - 1.6 % 10/10/2024 7:23 PM [facility] Immature Granulocytes % 0.4 0.0 - 1.0 % 10/10/2024 7:23 PM [facility] Neutrophil Absolute 9.18(H) 1.60 - 7.50 x10E9/L 10/10/2024 7:23 PM [facility] Lymphocyte Absolute 1.46 1.00 - 4.40 x10E9/L 10/10/2024 7:23 PM [facility] Monocyte Absolute 0.53 0.15 - 1.00 x10E9/L 10/10/2024 7:23 PM [facility] Eosinophil Absolute 0.11 0.00 - 0.60 x10E9/L 10/10/2024 7:23 PM [facility] Basophil Absolute 0.08 0.00 - 0.13 x10E9/L 10/10/2024 7:23 PM [facility] Blood BLOOD SPECIMEN / Unknown Venipuncture / Unknown 10/10/2024 6:59 PM [facility] 10/10/2024 7:15 PM [facility] Saniya Platt TOW MOTOR OPERATOR-HAND ETCHER LAB - HEMATOLOG Y ORDERABLES Performing Organization Address City/State/[facility] Co de Phone Number [facility] [address] [place] [address], [facility] [phone] * (ABNORMAL) COMPREHENSIVE METABOLIC PANEL (10/10/2024 6:59 PM BARN HAND) BUN 13 7 - 26 mg/dL 10/10/2024 7:40 PM [facility] Creatinine 0.82 0.71 - 1.16 mg/dL 10/10/2024 7:40 PM [facility] Sodium 141 136 - 145 mmol/L 10/10/2024 7:40 PM [facility] Potassium 3.9 3.5 - 4.5 mmol/L 10/10/2024 7:40 PM [facility] Chloride 108(H) 98 - 107 mmol/L 10/10/2024 7:40 PM [facility] CO2 23 22 - 29 mmol/L 10/10/2024 7:40 PM [facility] Glucose 91 70 - 99 mg/dL 10/10/2024 7:40 PM [facility] Calcium 9.4 8.4 - 10.2 mg/dL 10/10/2024 7:40 PM [facility] Protein Total 7.9 6.0 - 8.3 g/dL 10/10/2024 7:40 PM [facility] Albumin 4.3 3.4 - 5.0 g/dL 10/10/2024 7:40 PM [facility] Bilirubin Total 0.5 0.2 - 1.2 mg/dL 10/10/2024 7:40 PM [facility] Alkaline Phosphatase 63 40 - 150 U/L 10/10/2024 7:40 PM [facility] ALT 31 5 - 55 U/L 10/10/2024 7:40 PM [facility] AST 20 5 - 34 U/L 10/10/2024 7:40 PM [facility] Anion Gap 10 6 - 16 10/10/2024 7:40 PM [facility] BUN/Creatinine Ratio 16 7 - 23 10/10/2024 7:40 PM [facility] Osmolality Calculated 292 275 - 295 mOsm/kg 10/10/2024 7:40 PM [facility] Albumin/Globulin Ratio 1.2 1.1 - 2.3 10/10/2024 7:40 PM [facility] eGFR by CKD-EPI >90 >=90 mL/min/1.7 3 m2 10/10/2024 7:40 PM [facility] Blood BLOOD SPECIMEN / Unknown Venipuncture / Unknown 10/10/2024 6:59 PM [facility] 10/10/2024 7:15 PM [facility] Saniya Platt TOW MOTOR OPERATOR-HAND ETCHER LAB - CHEMISTRY ORDERABLES [facility] [address] [place] [address], [facility] [phone] * ALCOHOL ETHYL BLOOD (10/10/2024 6:59 PM BARN [facility]) Ethanol (mg/dL) <10 <=10 mg/dL 7:40 PM [facility] Ethanol Calculated (g/dL) <0.010 <0.010 g/dL 10/10/2024 7:40 PM [facility] Blood BLOOD SPECIMEN / Unknown Venipuncture / Unknown 10/10/2024 6:59 PM BARN HAND 10/10/2024 7:15 PM BARN HAND Narrative [facility] - 10/10/2024 7:40 PM [facility]ARN [facility] Ethanol Interp <10: None Detected. Depression of ORTHOPAEDIC GENERAL: >100 mg/dl Potentially Critical: >250 mg/dl Potentially Fatal >400 mg/dl Ethanol in the patient's blood will contribute to the osmolar gap. Ethanol's contribution to the osmolar gap can be estimated by dividing the concentration of ethanol in mg/dL by 4.6. This test is for clinical use only and does not equal a JODY for legal purposes. Saniya Platt TOW MOTOR OPERATOR-HAND ETCHER LAB - CHEMISTRY ORDERABLES [facility] [address] [place] [address], [facility] [phone] Care Teams Cement Mason Helper Relationship Specialty Start Date End Date Joaquin Cabrera MD [address] [place] [phone] PCP - General 10/26/24
--- OUTSIDE RECORDS SUMMARY | 2025-01-20 14:00 | XMS_ITS | Clinical Summary ---
Author Organization [facility] Address [address] [place] [id number] Care Team Providers Care Yarn Rewinder Name Role Phone Unavailable Primary Care Provider Unavailabl e Social History Tobacco Use Types Packs/Day Years Used Date Smoking Tobacco: Never Assessed Sex and Gender Information Value Date Recorded Sex Assigned at Not on file Legal Sex Male 3:43 PM [employer] Gender Identity Not on file Sexual Orientation Not on file Plan of Treatment Health Maintenance Due Date Last Done Comments Hepatitis C Virus (HCV) Screening 1998 TdaP Immunization 1998 Human Papillomavirus (HPV) Immunization (1 - Male 3-dose series) 2013 Influenza Immunization (#1) 2024 SARS-COV-2 Immunization ( season) 2024 Respiratory Syncytial Virus (RSV) Immunization (Adult) (1 - 1-dose 75+ series) 2073 Hepatitis B Immunization Completed 999, 1998, 1998 DTaP/Tdap/Td Immunization Discontinued 2002, 01/08/2000, 01/09/1999, Additional history exists Meningococcal Immunization (ACWY) Aged Out No longer eligible based on patient's age to complete this topic Pneumococcal Immunization Combined Aged Out No longer eligible based on patient's age to complete this topic Rotavirus Immunization Aged Out No lo nger eligible based on patient's age to complete this topic Insurance [employer] on file
[2025-01-20 14:29] LABS: Add Urine Microscopic? NO; Appearance Urine Clear (Clear); Bilirubin Urine Negative (Negative); Blood Urine Negative (Negative); Color Urine Yellow (Yellow); Glucose Urine UA Negative (Negative); Ketones Urine Negative (Negative); Leukocyte Esterase Ur Negative LEU/UL (Negative); Nitrate Urine Negative (Negative); Protein Urine Negative (Negative); Specific Grav Ur 1.016 (1.001-1.035); Urobilinogen Urine 0.2 mg/dL (<2.0); pH Urine 7.5 (5.0-9.0)
== END 2025-01-20 13:57 | disposition home or self-care (01) ==
LOC: ANHLAB 13:57
PROVIDERS: PCP Family Medicine; Visit Provider Physician Assistant Medical
DX: R10.9 Unspecified abdominal pain (principal)
CPT/HCPCS: 81003

== ENCOUNTER 2025-06-07 14:18 | Outpatient (CLI) | payer BC, SELFPAY ==
--- NOTE | ~2025-06-07 | US_ITS ---
Testicular ultrasound with doppler. Indication: Scrotal pain. Technique: Real-time sonography the scrotum was performed. Color flow Doppler and Doppler spectral an alysis were performed. Findings: The testes are homogeneous in echotexture bilaterally. There is no evidence of an intrates ticular mass. The right testis measures 3.6 x 2.2 x 2.3 cm and the left 3.2 x 2.3 x 2.1 cm. There is color-flow seen to both testes. Arterial and venous spectral waveforms are seen in both testes. There is no sonographic evidence of torsion. The head of the epididymis is visualized bilaterally and is within normal limits. Large left hydrocele present. Mild bilateral varicocele present. Impression: Large left hydrocele. Mild bilateral varicoceles. Reviewed, dictated and finalized at [facility]. Impression: Large left hydrocele. Mild bilateral varicoceles.
== END 2025-06-07 14:19 | disposition home or self-care (01) ==
LOC: MICIMG 14:19
PROVIDERS: PCP Family Medicine; Visit Provider Physician Assistant
DX: N50.82 Scrotal pain (principal); N50.819 Testicular pain, unspecified; N43.3 Hydrocele, unspecified
CPT/HCPCS: 76870; 93976